=== PATIENT | male | born 1975 | race Caucasian/White ===

== ENCOUNTER 2016-11-01 19:36 | Emergency (ER) | payer BC ==
[2016-11-01] MEDS ORDERED: Adacel (T-DAP) 0.5 ML VIAL ONE (20:06)
[2016-11-01] MEDS ORDERED: Cephalexin 500 MG CAP ONE (20:06)
[2016-11-01] MEDS ORDERED: Sulfameth/Trimethoprim DS 800-160mg TAB ONE (20:06)
== END 2016-11-01 20:25 | disposition home or self-care (01) ==
LOC: MADERS 19:36
DX: L02.214 Cutaneous abscess of groin (principal); L03.115 Cellulitis of right lower limb; F17.210 Nicotine dependence, cigarettes, uncomplicated; F41.9 Anxiety disorder, unspecified
CPT/HCPCS: 90471; 90715

== ENCOUNTER 2016-11-23 18:46 | Emergency (ER) | payer BC ==
[~2016-11-23 18:46] MED LIST: Iopamidol 370 76% 100 ML VIAL ONE; Sodium Chloride 0.9% 1,000 ML BAG ONE
[2016-11-23] MEDS ORDERED: Lorazepam 2 MG/ML VIAL ONE ×2 (18:59→19:51)
[2016-11-23] MEDS ORDERED: Ondansetron HCl/PF 4 MG/2 ML Vial ONE ×2 (19:00→19:35)
[2016-11-23 19:10] LABS: #Basophils 0.1 thou/uL (0.0-0.2); #Eosinphils 0.1 thou/uL (0.0-0.7); #Lymphocytes 3.4 thou/uL (1.20-3.40); #Monocytes 1.4 thou/uL (0.11-0.59); #Neutrophils 6.1 thou/uL (1.40-6.50); %Basophils 0.8 % (0.0-1.0); %Lymphocytes 30.5 % (21.0-51.0); %Monocytes 12.3 % (0.0-10.0); %Neutrophils 55.3 % (42.0-75.0); Hemoglobin 16.9 g/dL (14.0-18.0); Mean Corpuscular HGB CONC 34.6 g/dL (32.0-36.0); Mean Corpuscular Hemoglobin 30.1 pg (27.0-31.0); Mean Platelet Volume 5.8 fL (7.4-10.4); Platelet Count 333 thou/uL (130-400); RBC Distribution Width 10.4 % (11.5-14.5)
[2016-11-23 19:42] LABS: ALT (SGPT) 34 U/L (8-55); AST (SGOT) 33 U/L (5-34); Albumin 5.2 g/dL (3.5-5.0); Alkaline Phosphatase 53 U/L (40-150); Anion Gap 20 mmol/L (10-20); BUN (Urea Nitrogen) 17 mg/dL (8.9-20.6); Bilirubin, Total 1.2 mg/dL (0.2-1.2); CK (CPK) 396 U/L (30-200); Calc. Creatinine Clearance 0 mL/min (70-130); Calcium 10.3 mg/dL (7.8-10.44); Carbon Dioxide 19 mmol/L (22-29); Chloride 106 mmol/L (98-107); Estimated GFR-MDRD 66; Globulin 3.1 g/dL (2.4-3.5); Glucose 95 mg/dL (70-105); Lipase 26 U/L (8-78); Potassium 3.6 mmol/L (3.5-5.1); Protein, Total 8.3 g/dL (6.0-8.3); Sodium 141 mmol/L (136-145)
[2016-11-23] MEDS ORDERED: Haloperidol Lactate 5 MG/ML VIAL ONE (21:03)
[2016-11-23] MEDS ORDERED: Promethazine HCl 25 MG/ML VIAL ONE (21:39)
--- NOTE | 2016-11-23 22:35 | CT ---
CT OF THE ABDOMEN AND PELVIS WITH IV CONTRAST 11/23/16 INDICATION: Nausea, vomiting. COMPARISON: None. FINDINGS: There is a small calcified granuloma in the right lower lobe. Tiny hypodensities within the right he patic dome difficult to characterize due to their size. There are also small hypodensities within senthil th kidneys that are difficult to characterize due to their size. The pancreas, adrenal glands and spleen appear within normal limits. No free fluid or enlarged lymph nodes are evident. There is a normal appendix in the right lower quadrant. There is no evidence of bowel obstruction. No free fluid or enlarged lymph nodes are evident. No definite acute osseous abnormality is evident. IMPRESSION: 1. No acute abnormality. 2. Difficult to characterize hepatic and renal hypodensities due to size. 3. Findings of prior granulomatous disease. POS: [facility]
[2016-11-23 22:43] LABS: Bilirubin Negative (Negative); Blood, Urine Trace (Negative); Clarity Clear (Clear); Glucose, Urine (Dipstick) Negative (Negative); Leukocyte Negative (Negative); Nitrite Negative (Negative); Protein, Urine (Dipstick) 100 mg/dL (Neg-Trace); Urobilinogen 0.2 mg/dL (0.2-1.0); pH, Urine 5.5 (5.0-9.0)
[2016-11-23 22:44] LABS: Bacteria/HPF Rare-Few HPF (None Seen); Squamous Epithelial 21-50 HPF (0-3); WBC/HPF 0-3 HPF (0-3)
== END 2016-11-23 22:20 | disposition home or self-care (01) ==
LOC: MADERS 18:46
DX: R11.2 Nausea with vomiting, unspecified (principal); E86.0 Dehydration; G25.71 Drug induced akathisia; T43.4X5A Adverse effect of butyrophenone and thiothixene neuroleptics, initial encounter; F41.9 Anxiety disorder, unspecified; F43.10 Post-traumatic stress disorder, unspecified; F17.210 Nicotine dependence, cigarettes, uncomplicated
CPT/HCPCS: 36416; 74177; 80053; 81003; 81015; 82550; 83690; 85025; 96361; 96374; 96375; 96376; J1630; J2060; J2405; J2550; J7050

== ENCOUNTER 2016-11-25 07:12 | Observation (INO) | payer BC ==
[2016-11-25] MEDS ORDERED: Lorazepam 2 MG/ML VIAL ONE (07:22)
[2016-11-25] MEDS ORDERED: Promethazine HCl 25 MG/ML VIAL ONE ×2 (07:22→13:03)
[2016-11-25 08:01] LABS: #Basophils 0.1 thou/uL (0.0-0.2); #Eosinphils 0.1 thou/uL (0.0-0.7); #Lymphocytes 2.1 thou/uL (1.20-3.40); #Monocytes 0.7 thou/uL (0.11-0.59); #Neutrophils 4.3 thou/uL (1.40-6.50); %Basophils 1.1 % (0.0-1.0); %Eosinophils 1.6 % (0.0-10.0); %Lymphocytes 28.8 % (21.0-51.0); %Neutrophils 58.5 % (42.0-75.0); Hemoglobin 15.6 g/dL (14.0-18.0); Mean Corpuscular HGB CONC 34.6 g/dL (32.0-36.0); Mean Corpuscular Hemoglobin 30.2 pg (27.0-31.0); Mean Corpuscular Volume 87.5 fl (80.0-94.0); Mean Platelet Volume 5.7 fL (7.4-10.4); Platelet Count 267 thou/uL (130-400); RBC Distribution Width 10.7 % (11.5-14.5); Red Blood Cell (RBC) Count 5.17 mill/uL (4.70-6.10); White Blood Cell (WBC) Count 7.3 thou/uL (4.8-10.8)
[2016-11-25] MEDS ORDERED: Pantoprazole 40 MG VIAL ONE (08:05)
[2016-11-25] MEDS ORDERED: Ondansetron HCl/PF 4 MG/2 ML Vial ONE (08:05)
[2016-11-25 08:12] LABS: ALT (SGPT) 26 U/L (8-55); AST (SGOT) 27 U/L (5-34); Albumin 4.3 g/dL (3.5-5.0); Alkaline Phosphatase 48 U/L (40-150); Anion Gap 15 mmol/L (10-20); BUN (Urea Nitrogen) 11 mg/dL (8.9-20.6); Bilirubin, Total 0.5 mg/dL (0.2-1.2); CK (CPK) 256 U/L (30-200); Calc. Creatinine Clearance 0 mL/min (70-130); Calcium 9.2 mg/dL (7.8-10.44); Carbon Dioxide 22 mmol/L (22-29); Chloride 108 mmol/L (98-107); Estimated GFR-MDRD 89; Globulin 2.6 g/dL (2.4-3.5); Glucose 113 mg/dL (70-105); Lipase 39 U/L (8-78); Potassium 3.3 mmol/L (3.5-5.1); Protein, Total 6.9 g/dL (6.0-8.3); Sodium 142 mmol/L (136-145)
[2016-11-25] MEDS ORDERED: Sodium Chloride 0.9% 1,000 ML BAG ONE (08:58)
[2016-11-25] MEDS ORDERED: 1/2 NS w/KCL 20 mEq 1,000 ML ONE ×2 (09:00→10:50)
[2016-11-25 09:42] LABS: Bilirubin Negative (Negative); Blood, Urine Small (Negative); Clarity Hazy (Clear); Glucose, Urine (Dipstick) Negative (Negative); Leukocyte Negative (Negative); Nitrite Negative (Negative); Protein, Urine (Dipstick) Negative (Neg-Trace); Urobilinogen 0.2 mg/dL (0.2-1.0); pH, Urine 5.5 (5.0-9.0)
[2016-11-25 09:44] LABS: Bacteria/HPF Rare-Few HPF (None Seen); Squamous Epithelial 0-3 HPF (0-3); WBC/HPF 0-3 HPF (0-3)
[2016-11-25] MEDS ORDERED: Diazepam 10 MG/2 ML SYRINGE ONE ×2 (10:50→14:58)
[2016-11-25 13:19] LABS: Amphetamine Not Detected (NotDetected); Barbiturates Screen Not Detected (NotDetected); Benzodiazepine Screen Detected (NotDetected); Cocaine Metabolite Screen Not Detected (NotDetected); Methadone Not Detected (NotDetected); Methamphetamine Not Detected (NotDetected); Opiate Screen Not Detected (NotDetected); Oxycodone Screen Not Detected (NotDetected); Phencyclidine (PCP) Not Detected (NotDetected); THC/Cannabinoid Screen Detected (NotDetected); Tricyclic Screen Not Detected (NotDetected)
[2016-11-25 13:20] LABS: Medtox Control Line Valid? VALID (VALID)
--- NOTE | 2016-11-25 13:59 | CT ---
CT ABDOMEN AND PELVIS: HISTORY: Nausea and vomiting. FINDINGS: Noncontrast-enhanced CT images abdomen and pelvis. IV and oral contrast was not given. The lung bases are unremarkable. No evidence of free intraperitoneal air is seen. The liver, spleen, gallbladder, pancreas, adrenal glands, and kidneys are unremarkable. No evidence of hydroureteral nephrosis is seen. No evidence of renal calculi seen. No evidence of periaortic lymphadenopathy is seen. A normal appendix is seen. The small bowel and colonic loops are unremarkable without evidence of o bstruction. No evidence of intraabdominal masses or lesions seen. IMPRESSION: Normal noncontrast-enhanced CT images of the abdomen and pelvis. POS: [facility]
[2016-11-25] MEDS ORDERED: Ketorolac Tromethamine 30 MG/ML VIAL ONE (14:58)
[2016-11-25 15:49] VITALS: BMI 30.9
[2016-11-25] MEDS ORDERED: Acetaminophen 325 MG TAB PO PRN (16:15)
[2016-11-25] MEDS ORDERED: HYDROcodone/Acetaminophen 5/325 mg Tablet PO PRN ×2 (16:15)
[2016-11-25] MEDS: Sodium Chloride 0.9% 1,000 ML IV SCH ×2 (16:50→21:55)
[2016-11-25] MEDS: Ondansetron HCl/PF 4 MG/2 ML Vial SLOW IVP PRN ×2 (16:51→21:54)
[2016-11-25] MEDS ORDERED: Famotidine 20 MG TAB PO SCH (21:00)
[2016-11-26] MEDS: Sodium Chloride 0.9% 1,000 ML IV SCH (05:43)
[2016-11-26] MEDS ORDERED: Sodium Chloride 0.9% 1,000 ML BAG ONE (07:00)
[2016-11-26 07:48] LABS: #Basophils 0.1 thou/uL (0.0-0.2); #Eosinphils 0.1 thou/uL (0.0-0.7); #Lymphocytes 2.5 thou/uL (1.20-3.40); #Monocytes 0.8 thou/uL (0.11-0.59); #Neutrophils 4.6 thou/uL (1.40-6.50); %Basophils 0.7 % (0.0-1.0); %Eosinophils 1.1 % (0.0-10.0); %Lymphocytes 30.8 % (21.0-51.0); %Monocytes 9.5 % (0.0-10.0); %Neutrophils 57.9 % (42.0-75.0); Hemoglobin 13.5 g/dL (14.0-18.0); Mean Corpuscular HGB CONC 34.3 g/dL (32.0-36.0); Mean Corpuscular Hemoglobin 30.4 pg (27.0-31.0); Mean Corpuscular Volume 88.8 fl (80.0-94.0); Mean Platelet Volume 6.2 fL (7.4-10.4); Platelet Count 197 thou/uL (130-400); RBC Distribution Width 10.8 % (11.5-14.5); Red Blood Cell (RBC) Count 4.42 mill/uL (4.70-6.10)
[2016-11-26] MEDS ORDERED: Diazepam 5 MG TAB PO PRN (08:09)
[2016-11-26] MEDS ORDERED: Ondansetron ODT 4 MG TAB PO PRN (08:09)
[2016-11-26 08:13] LABS: Anion Gap 10 mmol/L (10-20); BUN (Urea Nitrogen) 6 mg/dL (8.9-20.6); Calc. Creatinine Clearance 165 mL/min (70-130); Calcium 8.1 mg/dL (7.8-10.44); Carbon Dioxide 24 mmol/L (22-29); Chloride 111 mmol/L (98-107); Estimated GFR-MDRD Greater than 90; Glucose 93 mg/dL (70-105); Potassium 3.5 mmol/L (3.5-5.1); Sodium 141 mmol/L (136-145)
[2016-11-26 08:14] VITALS: BP 145/70; TEMP 99.1
== END 2016-11-26 08:43 | disposition home or self-care (01) ==
LOC: MADERS 07:12 → MADMS 14:54 → INTOOBSV 14:54
PROVIDERS: ADMIT Family Medicine; ATTEND Family Medicine
DX: R11.2 Nausea with vomiting, unspecified (principal); F41.9 Anxiety disorder, unspecified; F43.10 Post-traumatic stress disorder, unspecified; F17.210 Nicotine dependence, cigarettes, uncomplicated
CPT/HCPCS: 36415; 74176; 80048; 80053; 80306; 81003; 81015; 82550; 83690; 83735; 85025; 96361; 96365; 96372; 96375; 96376; C9113; G0378; J1885; J2060; J2405; J2550; J3360; J7050

== ENCOUNTER 2024-09-25 12:41 | Outpatient (CLI) | payer OTHER | END 2024-09-25 12:42 | disposition home or self-care (01) | LOC: MADRAD 12:41 | PROVIDERS: ATTEND Orthopaedic Surgery | DX: M54.2 Cervicalgia (principal); W19.XXXA Unspecified fall, initial encounter; Z98.890 Other specified postprocedural states | CPT/HCPCS: 72040 ==

== ENCOUNTER 2024-10-21 11:18 | Outpatient (CLI) | payer OTHER | END 2024-10-21 11:19 | disposition home or self-care (01) | LOC: MADLAB 11:18 | PROVIDERS: ATTEND Orthopaedic Surgery | DX: M54.2 Cervicalgia (principal); Z98.1 Arthrodesis status | CPT/HCPCS: 72040 ==